=== PATIENT | male | born 1970 | race African-American/Black ===

== ENCOUNTER 2019-09-18 12:17 | Emergency (ER) | payer MEDICAID ==
[~2019-09-18] VITALS: Ht 175.3 cm; Wt 63.5 kg
[2019-09-18 12:20] VITALS: BP 112/68
--- NOTE | 2019-09-18 12:25 | Emergency Room Report ---
History of Present Illness General Chief Complaint: Abdominal Pain Source: Patient, EMS Present Illness HPI 49-year-old male just discharged from [facility] brought in by EMS, patient presents with 3 months of abdominal pain he states abdominal pain is achy in nature constant worsened when he stools states he feels very tired after a large stool Allergies: Coded Allergies: No Known Allergies (Unverified , 09/18/19) COVID-19 Screening Contact w/high risk pt: No Recent Travel to affected area: No Experienced COVID-19 symptoms?: No COVID-19 Testing performed [employer]: No Patient History Social History: Reports: drug use - Meth Reviewed Nursing Documentation: PMH: Agreed; PSxH: Agreed Nursing Documentation-PMH Past Medical History: No Stated History Review of Systems All Other Systems: negative except mentioned in HPI Physical Exam Vital Signs Date Time Temp Pulse Resp B/P (MAP) Pulse Ox O2 Delivery O2 Flow Rate FiO2 09/18/19 12:15 98.2 89 17 112/68 (83) 99 Room Air Sp02 EP Interpretation: reviewed, normal General Appearance: well appearing, no apparent distress, alert Head: normocephalic, atraumatic Eyes: bilateral eye PERRL, bilateral eye EOMI ENT: uvula midline, moist mucus membranes Neck: supple, thyroid normal, supple/symm/no masses Respiratory: lungs clear, no respiratory distress, no retraction, no accessory muscle use Cardiovascular #1: normal peripheral pulses, regular rate, rhythm, no edema, no gallop, no murmur Gastrointestinal: non tender, soft, no guarding, no rebound Musculoskeletal: normal inspection Neurologic: alert, oriented x3 Psychiatric: mood/affect normal Skin: no rash, warm/dry Medical Decision Making Diagnostic Impression: Primary Impression: Abdominal pain Qualified Codes: R10.30 - Lower abdominal pain, unspecified ER Course 49-year-old male presents with vague complaints of lower abdominal pain, patient was already discharged today from [facility] after a work- up. CT scan shows ascites, which may be consistent with his drug and substance abuse, with chronic liver disease. No acute intra-abdominal processes are occurring no evidence of appendicitis diverticulitis. Patient's pain has been ongoing for over 3 months. Patient's abdomen soft nontender patient is tolerating good p.o. Patient has been given strict return precautions referral to PCP Laboratory Tests Test 09/18/19 12:30 White Blood Count 9.7 K/UL (4.8-10.8) Red Blood Count 6.27 M/UL (4.70-6.10) H Hemoglobin 17.3 G/DL (14.2-18.0) Hematocrit 58.4 % (42.0-52.0) H Mean Corpuscular Volume 93 FL (80-99) Mean Corpuscular Hemoglobin 27.7 PG (27.0-31.0) Mean Corpuscular Hemoglobin Concent 29.7 G/DL (32.0-36.0) L Red Cell Distribution Width 15.2 % (11.6-14.8) H Platelet Count 278 K/UL (150-450) Mean Platelet Volume 6.7 FL (6.5-10.1) Neutrophils (%) (Auto) 71.5 % (45.0-75.0) Lymphocytes (%) (Auto) 20.1 % (20.0-45.0) Monocytes (%) (Auto) 7.4 % (1.0-10.0) Eosinophils (%) (Auto) 0.1 % (0.0-3.0) Basophils (%) (Auto) 0.9 % (0.0-2.0) Urine Color Yellow Urine Appearance Clear Urine pH 6 (4.5-8.0) Urine Specific [place] 1.020 (1.005-1.035) Urine Protein 2+ (NEGATIVE) H Urine Glucose (UA) Negative (NEGATIVE) Urine Ketones 1+ (NEGATIVE) H Urine Blood Negative (NEGATIVE) Urine Nitrite Negative (NEGATIVE) Urine Bilirubin Negative (NEGATIVE) Urine Urobilinogen 4 MG/DL (0.0-1.0) H Urine Leukocyte Esterase Negative (NEGATIVE) Urine RBC 0 /HPF (0 - 0) Urine WBC 0 /HPF (0 - 0) Urine Squamous Epithelial Cells Occasional /LPF Urine Bacteria Occasional /HPF (NONE) Urine Mucus Occasional /LPF Sodium Level 133 MMOL/L (136-145) L Potassium Level 5.3 MMOL/L (3.5-5.1) H Chloride Level 98 MMOL/L (98-107) Carbon Dioxide Level 28 MMOL/L (21-32) Anion Gap 8 mmol/L (5-15) Blood Urea Nitrogen 23 mg/dL (7-18) H Creatinine 1.3 MG/DL (0.55-1.30) Estimated Glomerular Filtration Rate 58.9 mL/min (>60) Glucose Level 108 MG/DL (74-106) H Calcium Level 8.9 MG/DL (8.5-10.1) Total Bilirubin 1.5 MG/DL (0.2-1.0) H Direct Bilirubin 0.3 MG/DL (0.0-0.3) Aspartate Amino Transferase (AST) 62 U/L (15-37) H Alanine Aminotransferase (ALT) 69 U/L (12-78) Alkaline Phosphatase 95 U/L (46-116) Total Protein 7.5 G/DL (6.4-8.2) Albumin 3.3 G/DL (3.4-5.0) L Globulin 4.2 g/dL Albumin/Globulin Ratio 0.8 (1.0-2.7) L Lipase 822 U/L (73-393) H Urine Opiates Screen Negative (NEGATIVE) Urine Barbiturates Screen Negative (NEGATIVE) Phencyclidine (PCP) Screen Negative (NEGATIVE) Urine Amphetamines Screen Negative (NEGATIVE) Urine Benzodiazepines Screen Negative (NEGATIVE) Urine Cocaine Screen Negative (NEGATIVE) Urine Marijuana (THC) Screen Negative (NEGATIVE) EKG Diagnostic Results EKG Time: 12:27 EP Interpretation: NSR, rate 97 QTc 474, no acute ST elevations, left axis deviation Rhythm Strip Diag. Results Rhythm Strip Time: 12:30 EP Interpretation: yes Rate: 98 Rhythm: NSR, no PVC's, no ectopy CT/MRI/US Diagnostic Results CT/MRI/US Diagnostic Results : Impression Procedure: CT Abdomen Pelvis w/Contrast EXAM: CT CT Abdomen Pelvis w/Contrast INDICATION: Chronic abdominal pain. COMPARISON: None TECHNIQUE: Axial images were obtained through the abdomen pelvis with intravenous contrast. Sagittal and coronal reformats are generated. All CT scans at this facility are performed using dose modulation techniques as appropriate to a performed exam including the following: automated exposure control with adjustment of the mA and/or kV according to patient size. RADIATION DOSE: CTDIvol: 5.5 mGy DLP: 285.7 mGy-cm Dose information generated by the CT scanner is available in PACS. FINDINGS: There are bilateral moderate layering effusions right slightly greater than left. Dependent compressive atelectasis noted in both lung bases. There is mild cardiomegaly. This postcontrast exam is performed primarily in the arterial phase. Liver and spleen are grossly homogeneous. There is gallbladder wall thickening and heterogeneous central densities perhaps noncalcified stones or sludge. The pancreas is unremarkable. Adrenals are normal in morphology. The left kidney is unremarkable. There is an area diminished enhancement in the lateral aspect of the right upper lobe which is difficult to characterize on this arterial phase. Smaller areas of diminished enhancement also noted in the lower pole of the right kidney and the left kidney which may represent small cysts Small bowel loops are nondistended. The colon is also nondistended with average amount of stool. The appendix is normal. Small amount of free fluid noted in the abdomen and pelvis. There is no free air. No pathologic adenopathy demonstrated. Urinary bladder appears unremarkable. There is no suspicious superficial soft tissue or osseous abnormality. IMPRESSION: BILATERAL PLEURAL EFFUSIONS AND DEPENDENT ATELECTASIS IN BOTH LUNG BASES. GALLBLADDER WALL THICKENING WITH UNDERLYING CENTRAL DENSITIES EITHER NONCALCIFIED STONES OR SLUDGE. SMALL AMOUNT OF ASCITES. THERE ARE SEVERAL AREAS OF NODULAR DIMINISHED ENHANCEMENT IN BOTH KIDNEYS, LARGEST IN THE LATERAL ASPECT OF THE RIGHT UPPER LOBE. IT IS DIFFICULT TO CHARACTERIZE ON THIS EXAM WHICH IS IN THE EARLY ARTERIAL PHASE. THERE ARE MOST LIKELY UNDERLYING CYSTS BUT SOLID LESION MUST BE EXCLUDED. RECOMMEND CORRELATION WITH ULTRASOUND. Dictated By: Jack Khan MD Electronically Signed By: Jack Khan MD Signed Date/Time 09/18/19 1416 CC: Wilian De La O MD Last Vital Signs Date Time Temp Pulse Resp B/P (MAP) Pulse Ox O2 Delivery O2 Flow Rate FiO2 09/18/19 12:20 98.2 89 17 112/68 99 Room Air Disposition: HOME, SELF-CARE Condition: Stable Scripts Ibuprofen* (MOTRIN*) 600 Mg Tablet 600 MG ORAL Q8H PRN for FOR PAIN, #30 TAB 0 Refills Prov: Wilian De La O MD 09/18/19 Referrals: [facility] Patient Instructions: Abdominal Pain, Adult Additional Instructions: The patient was provided with discharge instructions, notified to follow-up with a primary care doctor and or specialist in the next 24-48 hours, and to return to the ED if they have worsening of their symptoms. Please note that this report is being documented using [employer] technology. This can lead to erroneous entry secondary to incorrect interpretation by the dictating instrument. Wilian De La O MD Sep 18, 2019 12:25
[2019-09-18] MEDS ORDERED: Morphine Sulfate 4mg/ml Inj (IV USE ONLY) IVP ONE (12:30)
[2019-09-18] MEDS ORDERED: Omnipaque-300 100ml vial INJ PRN (12:30)
[2019-09-18 12:47] LABS: BASOPHILS % (AUTO) 0.9 % (0.0-2.0); EOSINOPHILS % (AUTO) 0.1 % (0.0-3.0); HEMATOCRIT 58.4 % (42.0-52.0); HEMOGLOBIN 17.3 G/DL (14.2-18.0); LYMPHOCYTES % (AUTO) 20.1 % (20.0-45.0); MEAN CORPUSCULAR VOLUME 93 FL (80-99); MONOCYTES % (AUTO) 7.4 % (1.0-10.0); NEUTROPHILS % (AUTO) 71.5 % (45.0-75.0); PLATELET COUNT 278 K/UL (150-450); RED BLOOD COUNT 6.27 M/UL (4.70-6.10); RED CELL DISTRIBUTION WIDTH 15.2 % (11.6-14.8); WHITE BLOOD COUNT 9.7 K/UL (4.8-10.8)
[2019-09-18 12:48] LABS: APPEARANCE,URINE CLEAR; BILIRUBIN, URINE NEGATIVE (NEGATIVE); GLUCOSE, URINE (UA) NEGATIVE (NEGATIVE); KETONES,URINE 1+ (NEGATIVE); LEUKOCYTE ESTERASE ,URINE NEGATIVE (NEGATIVE); NITRITE,URINE NEGATIVE (NEGATIVE); PH,URINE 6 (4.5-8.0); PROTEIN,URINE 2+ (NEGATIVE); UROBILINOGEN,URINE 4 MG/DL (0.0-1.0)
[2019-09-18 12:57] LABS: ANION GAP 8 mmol/L (5-15); BLOOD UREA NITROGEN 23 mg/dL (7-18); CALCIUM 8.9 MG/DL (8.5-10.1); CARBON DIOXIDE 28 MMOL/L (21-32); CHLORIDE 98 MMOL/L (98-107); CREATININE 1.3 MG/DL (0.55-1.30); POTASSIUM 5.3 MMOL/L (3.5-5.1); SODIUM 133 MMOL/L (136-145)
[2019-09-18 13:03] LABS: COLOR,URINE YELLOW
[2019-09-18 13:07] LABS: ALANINE AMINOTRANSFERASE 69 U/L (12-78); ALBUMIN 3.3 G/DL (3.4-5.0); ALBUMIN/GLOBULIN RATIO 0.8 (1.0-2.7); ALKALINE PHOSPHATASE 95 U/L (46-116); ASPARTATE AMINO TRANSFERASE 62 U/L (15-37); BILIRUBIN,TOTAL 1.5 MG/DL (0.2-1.0)
[2019-09-18 13:08] LABS: BILIRUBIN,DIRECT 0.3 MG/DL (0.0-0.3)
--- NOTE | 2019-09-18 14:22 | Diagnostic Imaging Report ---
EXAM: CT CT Abdomen Pelvis w/Contrast INDICATION: Chronic abdominal pain. COMPARISON: None TECHNIQUE: Axial images were obtained through the abdomen pelvis with intravenous contrast. Sagittal and coronal reformats are generated. All CT scans at this facility are performed using dose modulation techniques as appropriate to a performed exam including the following: automated exposure control with adjustment of the mA and/or kV according to patient size. RADIATION DOSE: CTDIvol: 5.5 mGy DLP: 285.7 mGy-cm Dose information generated by the CT scanner is available in PACS. FINDINGS: There are bilateral moderate layering effusions right slightly greater than left. Dependent compressive atelectasis noted in both lung bases. There is mild cardiomegaly. This postcontrast exam is performed primarily in the arterial phase. Liver and spleen are grossly homogeneous. There is gallbladder wall thickening and heterogeneous central densities perhaps noncalcified stones or sludge. The pancreas is unremarkable. Adrenals are normal in morphology. The left kidney is unremarkable. There is an area diminished enhancement in the lateral aspect of the right upper lobe which is difficult to characterize on this arterial phase. Smaller areas of diminished enhancement also noted in the lower pole of the right kidney and the left kidney which may represent small cysts Small bowel loops are nondistended. The colon is also nondistended with average amount of stool. The appendix is normal. Small amount of free fluid noted in the abdomen and pelvis. There is no free air. No pathologic adenopathy demonstrated. Urinary bladder appears unremarkable. There is no suspicious superficial soft tissue or osseous abnormality. IMPRESSION: BILATERAL PLEURAL EFFUSIONS AND DEPENDENT ATELECTASIS IN BOTH LUNG BASES. GALLBLADDER WALL THICKENING WITH UNDERLYING CENTRAL DENSITIES EITHER NONCALCIFIED STONES OR SLUDGE. SMALL AMOUNT OF ASCITES. THERE ARE SEVERAL AREAS OF NODULAR DIMINISHED ENHANCEMENT IN BOTH KIDNEYS, LARGEST IN THE LATERAL ASPECT OF THE RIGHT UPPER LOBE. IT IS DIFFICULT TO CHARACTERIZE ON THIS EXAM WHICH IS IN THE EARLY ARTERIAL PHASE. THERE ARE MOST LIKELY UNDERLYING CYSTS BUT SOLID LESION MUST BE EXCLUDED. RECOMMEND CORRELATION WITH ULTRASOUND.
[2019-09-18] MEDS ORDERED: IBUPROFEN600 M1 ORAL (14:28)
[2019-09-18 14:32] VITALS: BP 122/70
== END 2019-09-18 14:32 | disposition home or self-care (01) ==
LOC: EDBD 12:17 → EMR 13:09
DX: R10.30 Lower abdominal pain, unspecified (principal)
CPT/HCPCS: 36415; 74177; 80053; 80307; 81003; 82248; 83690; 85025; 93005; 96361; 96374; 96375; J2270; J2405; J7030; Q9967; Z7502; 99284

== ENCOUNTER 2019-11-12 17:15 | Emergency (ER) | payer MEDICAID, OTHER ==
[~2019-11-12] VITALS: Ht 180.3 cm; Wt 81.6 kg
[~2019-11-12 17:15] MED LIST: IBUPROFEN600 M1 ORAL
--- NOTE | 2019-11-12 17:28 | Emergency Room Report ---
History of Present Illness General Chief Complaint: Pain Source: Patient Present Illness HPI Patient was brought by EMS. He is complaining about bilateral leg pain and chest pain with dyspnea on exertion. Apparently was just discharged from [facility] after 9-day hospitalization. He is not sure what the diagnosis is. Denies smoking or drugs or alcohol. The patient has swelling in his genitals also. He denies dysuria. There are no fevers or chills. He denies productive cough. There is no pleuritic chest pain. He has orthopnea. His abdomen his distended. He denies pain. He rates the pain in his legs 8/10 and fairly constant. It is aching. It is nonradiating. He has swelling. The chest pain is less. It is poorly characterized The patient previously used drugs. He denies drugs at this time. [place] of no COVID-19 or the buses most of the day. He denies depression or suicidal ideation. He denies any COVID-19 exposure however he is on the streets. No fevers, chills, sore throat, palpitations, nausea, vomiting, diarrhea, dysuria, rashes, depression, anxiety, visual changes, dizziness, headache. Allergies: Coded Allergies: No Known Allergies (Unverified , 09/18/19) COVID-19 Screening Contact w/high risk pt: No Recent Travel to affected area: No Experienced COVID-19 symptoms?: No COVID-19 Testing performed [employer]: No Patient History Past Medical History: see triage record Social History: Denies: smoking, alcohol use, drug use - prior Social History Narrative Homeless - was discharged to assisted living from [facility] Reviewed Nursing Documentation: PMH: Agreed; PSxH: Agreed Nursing Documentation-PMH Past Medical History: No Stated History Review of Systems All Other Systems: negative except mentioned in HPI Physical Exam Vital Signs Date Time Temp Pulse Resp B/P (MAP) Pulse Ox O2 Delivery O2 Flow Rate FiO2 11/12/19 17:13 98.4 80 16 136/82 (100) 100 Room Air Sp02 EP Interpretation: reviewed, normal General Appearance: well appearing, GCS 15 Eyes: bilateral eye normal inspection, bilateral eye PERRL, bilateral eye EOMI ENT: moist mucus membranes Neck: supple Cardiovascular #1: JVD, tachycardia, edema - 2-3+ pitting Cardiovascular #2: 2+ radial (L), 2+ dorsalis pedis (R), 2+ dorsalis pedis (L) Gastrointestinal: non tender, distended, other - + fluid wave, decreased bowel sounds Genitourinary: no CVA tenderness, other - scrotal and penile edema Musculoskeletal: no calf tenderness, swelling - bilat, worse L Neurologic: motor strength/tone normal, oriented x3, sensory intact, grossly normal Psychiatric: mood/affect normal - Lack of understanding of physical and social condition, no suicidal/homicidal ideation, other - Tearful when discussing diagnosis Skin: no rash, warm/dry Medical Decision Making Diagnostic Impression: Primary Impression: CHF exacerbation Qualified Codes: I50.9 - Heart failure, unspecified Additional Impressions: Edema due to congestive heart failure Ascites Qualified Codes: R18.8 - Other ascites Renal insufficiency ER Course Labs remarkable for normal white count patient presents with leg pain, dyspnea on exertion and chest pain. Differential includes acute myocardial infarction, pulmonary embolus, heat exhaustion, muscle cramps amongst others. Evaluation with EKG, chest x-ray and labs. Patient placed on a threat monitoring analyst. Patient is satting okay at this time therefore pulmonary versus less likely. EKG with ST. CXR CHF cardiomegaly.. Mild renal insufficiency. Tox screen negative. Elevated BNP Not diuresing. Lasix repeat. Discussed with Dr. Rivers who accepts the patient. Patient diuresing with extra lasix. Patient almost insisting on leaving. Lacks insight. Agrees to stay. Advised to follow-up at congestive heart failure clinic at [place] when finally discharged. Laboratory Tests Test 11/12/19 17:50 11/12/19 18:00 White Blood Count 7.3 K/UL (4.8-10.8) Red Blood Count 5.12 M/UL (4.70-6.10) Hemoglobin 13.8 G/DL (14.2-18.0) L Hematocrit 44.2 % (42.0-52.0) Mean Corpuscular Volume 86 FL (80-99) Mean Corpuscular Hemoglobin 26.9 PG (27.0-31.0) L Mean Corpuscular Hemoglobin Concent 31.1 G/DL (32.0-36.0) L Red Cell Distribution Width 18.2 % (11.6-14.8) H Platelet Count 265 K/UL (150-450) Mean Platelet Volume 6.6 FL (6.5-10.1) Neutrophils (%) (Auto) 67.8 % (45.0-75.0) Lymphocytes (%) (Auto) 23.1 % (20.0-45.0) Monocytes (%) (Auto) 7.5 % (1.0-10.0) Eosinophils (%) (Auto) 0.0 % (0.0-3.0) Basophils (%) (Auto) 1.6 % (0.0-2.0) Prothrombin Time 13.4 SEC (9.30-11.50) H Prothrombin Time INR 1.2 (0.9-1.1) H Activated Partial Thromboplast Time 25 SEC (23-33) Sodium Level 134 MMOL/L (136-145) L Potassium Level 4.0 MMOL/L (3.5-5.1) Chloride Level 102 MMOL/L (98-107) Carbon Dioxide Level 20 MMOL/L (21-32) L Anion Gap 12 mmol/L (5-15) Blood Urea Nitrogen 26 mg/dL (7-18) H Creatinine 1.4 MG/DL (0.55-1.30) H Estimated Glomerular Filtration Rate > 60 mL/min (>60) Glucose Level 112 MG/DL (74-106) H Calcium Level 8.6 MG/DL (8.5-10.1) Total Bilirubin 1.9 MG/DL (0.2-1.0) H Direct Bilirubin 0.8 MG/DL (0.0-0.3) H Aspartate Amino Transferase (AST) 45 U/L (15-37) H Alanine Aminotransferase (ALT) 43 U/L (12-78) Alkaline Phosphatase 96 U/L (46-116) Total Creatine Kinase 173 U/L (26-308) Troponin I 0.012 ng/mL (0.000-0.056) Pro-B-Type Natriuretic Peptide 2413 pg/mL (0-125) H Total Protein 7.0 G/DL (6.4-8.2) Albumin 3.2 G/DL (3.4-5.0) L Globulin 3.8 g/dL Albumin/Globulin Ratio 0.8 (1.0-2.7) L Urine Color Yellow Urine Appearance Slightly cloudy Urine pH 5 (4.5-8.0) Urine Specific [place] 1.020 (1.005-1.035) Urine Protein 2+ (NEGATIVE) H Urine Glucose (UA) Negative (NEGATIVE) Urine Ketones Negative (NEGATIVE) Urine Blood Negative (NEGATIVE) Urine Nitrite Negative (NEGATIVE) Urine Bilirubin Negative (NEGATIVE) Urine Urobilinogen 4 MG/DL (0.0-1.0) H Urine Leukocyte Esterase Negative (NEGATIVE) Urine RBC 0 /HPF (0 - 0) Urine WBC 0-2 /HPF (0 - 0) Urine Squamous Epithelial Cells None /LPF (NONE/OCC) Urine Amorphous Sediment Many /LPF (NONE) H Urine Bacteria Few /HPF (NONE) Urine Opiates Screen Negative (NEGATIVE) Urine Barbiturates Screen Negative (NEGATIVE) Phencyclidine (PCP) Screen Negative (NEGATIVE) Urine Amphetamines Screen Negative (NEGATIVE) Urine Benzodiazepines Screen Negative (NEGATIVE) Urine Cocaine Screen Negative (NEGATIVE) Urine Marijuana (THC) Screen Negative (NEGATIVE) EKG Diagnostic Results Rate: tachycardiac Rhythm: NSR ST Segments: no acute changes Rhythm Strip Diag. Results EP Interpretation: yes Rhythm: no PVC's, no ectopy, other - ST Chest X-Ray Diagnostic Results Chest X-Ray Diagnostic Results : Chest X-Ray Ordered: Yes # of Views/Limited/Complete: 1 View Indication: Other EP Interpretation: Yes Interpretation: no effusion, no pneumothorax, other - CHF Impression: Other Electronically Signed by: Electronically signed by Israel David MD Last Vital Signs Date Time Temp Pulse Resp B/P (MAP) Pulse Ox O2 Delivery O2 Flow Rate FiO2 11/13/19 00:22 98.2 103 25 112/79 99 Room Air Status: improved Disposition: SHORT-TERM HOSP Condition: Serious Israel David MD Nov 12, 2019 17:28
[2019-11-12 17:45] VITALS: BP 128/85
[2019-11-12 18:03] LABS: BASOPHILS % (AUTO) 1.6 % (0.0-2.0); HEMATOCRIT 44.2 % (42.0-52.0); HEMOGLOBIN 13.8 G/DL (14.2-18.0); LYMPHOCYTES % (AUTO) 23.1 % (20.0-45.0); MEAN CORPUSCULAR VOLUME 86 FL (80-99); MONOCYTES % (AUTO) 7.5 % (1.0-10.0); NEUTROPHILS % (AUTO) 67.8 % (45.0-75.0); PLATELET COUNT 265 K/UL (150-450); RED BLOOD COUNT 5.12 M/UL (4.70-6.10); RED CELL DISTRIBUTION WIDTH 18.2 % (11.6-14.8); WHITE BLOOD COUNT 7.3 K/UL (4.8-10.8)
[2019-11-12 18:14] LABS: ANION GAP 12 mmol/L (5-15); BLOOD UREA NITROGEN 26 mg/dL (7-18); CALCIUM 8.6 MG/DL (8.5-10.1); CARBON DIOXIDE 20 MMOL/L (21-32); CHLORIDE 102 MMOL/L (98-107); CREATININE 1.4 MG/DL (0.55-1.30); INR 1.2 (0.9-1.1); SODIUM 134 MMOL/L (136-145)
[2019-11-12 18:25] LABS: ALANINE AMINOTRANSFERASE 43 U/L (12-78); ALBUMIN 3.2 G/DL (3.4-5.0); ALBUMIN/GLOBULIN RATIO 0.8 (1.0-2.7); ALKALINE PHOSPHATASE 96 U/L (46-116); ASPARTATE AMINO TRANSFERASE 45 U/L (15-37); BILIRUBIN,TOTAL 1.9 MG/DL (0.2-1.0); CREATINE KINASE 173 U/L (26-308)
[2019-11-12 18:27] LABS: BILIRUBIN,DIRECT 0.8 MG/DL (0.0-0.3)
[2019-11-12 19:37] LABS: BILIRUBIN, URINE NEGATIVE (NEGATIVE); GLUCOSE, URINE (UA) NEGATIVE (NEGATIVE); KETONES,URINE NEGATIVE (NEGATIVE); LEUKOCYTE ESTERASE ,URINE NEGATIVE (NEGATIVE); NITRITE,URINE NEGATIVE (NEGATIVE); PH,URINE 5 (4.5-8.0); PROTEIN,URINE 2+ (NEGATIVE); UROBILINOGEN,URINE 4 MG/DL (0.0-1.0)
[2019-11-12 19:42] LABS: APPEARANCE,URINE SLIGHTLY CLOUDY; COLOR,URINE YELLOW
[2019-11-13 00:22] VITALS: BP 112/79
--- NOTE | 2019-11-13 10:47 | Diagnostic Imaging Report ---
Indication: Reason For Exam: CP Technique: Single AP view of the chest. Comparison: None. Findings: Heart is enlarged when accounting for projection and technique. There are low lung volumes, leading to bronchovascular crowding. There is interstitial edema. There are bilateral patchy perihilar and left basilar airspace opacities. Likely small bilateral pleural effusions. No pneumothorax. There is superior displacement of the right distal clavicle with respect to the acromion. There is a small ossific density subjacent to the distal clavicle. IMPRESSION: 1. Mild to moderate pulmonary edema. Associated bibasilar airspace opacities may represent compression atelectasis and edema but pneumonia should be excluded clinically. 2. Small bilateral pleural effusions. 3. Cardiomegaly. 4. Age indeterminate right acromioclavicular joint injury. Correlation with point tenderness is recommended.
== END 2019-11-13 00:22 | disposition short-term general hospital (02) ==
LOC: EDBD 17:15 → EMR 17:35
DX: I50.9 Heart failure, unspecified (principal); R60.1 Generalized edema; N28.9 Disorder of kidney and ureter, unspecified
CPT/HCPCS: 36415; 71045; 80053; 80307; 81003; 82248; 82550; 83880; 84484; 85025; 85610; 85730; 93005; 96374; 96376; J1940; Z7502; 99284